=== PATIENT | female | born 1960 | race Caucasian/White ===

== ENCOUNTER 2020-01-13 15:59 | Emergency (ER) | payer OTHER, SELFPAY ==
--- NOTE | ~2020-01-13 | XR_ITS ---
EXAMINATION: XR chest 2V DATE: 01/13/2020 17:03 INDICATION: Chest pain. TECHNIQUE: Frontal and lateral views of the chest were obtained. COMPARISON: None. FINDINGS: There is mild scarring at the lung apices. No pleural effusion or pneumothorax. The heart s ize is normal. There is a moderate-sized hiatal hernia. There are surgical clips in the upper abdomen . IMPRESSION: 1. Moderate-sized hiatal hernia. Reviewed, dictated and finalized at location A.
[2020-01-13 16:33] VITALS: BP 151/98; PULSE 87; RESP 16; TEMP 36.8; O2SAT 97
--- NOTE | 2020-01-13 16:33 | ECG_ITS ---
Measurements Intervals [place] Rate: 85 P: 37 MN: 150 QRS: 29 QRSD: 86 T: 38 QT: 354 QTc: 422 Interpretive Statements SINUS RHYTHM NORMAL ECG Electronically Signed On 01-13-2020 16:47:49 CDT by Darren Kemp D.O.
[2020-01-13 16:47] LABS: Basophils Absolute Auto 0.1 K/mm3 (0.0-0.1); Eosinophils Percent Auto 11.9 % (0-4.4); Hematocrit 48.3 % (37.0-47.0); Hemoglobin 15.7 g/dL (12.0-15.0); Immature Granulocyte Absolute 0.03 K/mm3 (0.00-0.031); Immature Granulocyte Percent A 0.4 % (0-0.5); Lymphocytes Absolute Auto 1.72 K/mm3 (0.9-3.2); Lymphocytes Percent Auto 21.6 % (18.3-44.2); Mean Corpuscular HGB Conc 32.5 g/dl (32-36); Mean Corpuscular Hemoglobin 31.3 pg (26-34); Mean Corpuscular Volume 96.4 fl (80-100); Mean Platelet Volume 9.5 fl (7.4-10.4); Monocytes Absolute Auto 0.6 K/mm3 (0.1-0.6); Monocytes Percent Auto 8.1 % (2.6-8.5); Neutrophils Absolute Auto 4.5 K/mm3 (1.3-6.7); Platelet Count Result 216 k/mm3 (150-375); Red Blood Count 5.01 M/mm3 (4.2-5.4); Red Cell Distribution Width 13.1 % (11.5-14.5)
[2020-01-13 16:58] LABS: Anion Gap 7 mmol/L (8-16); Blood Urea Nitrogen 15 mg/dL (7-17); Carbon Dioxide 27 mmol/L (22-30); Chloride 105 mmol/L (98-107); Estimated CRCL calculation 118 ml/min; Estimated Glomerular Filt Rate > 60; Glucose 114 mg/dL (65-105); Potassium 4.3 mmol/L (3.4-5.0); Sodium 139 mmol/L (137-145)
[2020-01-13 17:04] LABS: Prothrombin Time 12.6 Seconds (11.1-14.7)
[2020-01-13 17:05] LABS: Partial Thromboplastin Time 24.7 SECONDS (22.3-36.8)
[2020-01-13 17:10] LABS: Troponin I < 0.012 ng/mL (0.000-0.034)
[2020-01-13 18:48] VITALS: PULSE 89
[2020-01-13 18:49] VITALS: BP 142/90; PULSE 89; RESP 17; O2SAT 98
--- NOTE | 2020-01-13 18:59 | ED.CHESTPAIN ---
HPI - Chest Pain General Chief Complaint: Chest Pain Stated Complaint: High Blood Pressure Time Seen by Provider: 01/13/20 18:38 Source: patient Mode of arrival: ambulatory Limitations: no limitations History of Present Illness HPI narrative: Patient is a 59-year-old female who presents from urgent care with complaints of chest tightness. Patient reports elevated blood pressure earlier this a.m. and chest tightness started after. She denies shortness of breath. She denies exposure to Covid. Patient reports she was Covid +2 months ago. Patient denies headache, nausea, vomiting, diarrhea or other complaints. Patient reports only cardiac history that she has is hypertension. She reports pain is tightness and 3/10. MD complaint: chest heaviness Related Data Allergies Allergy/AdvReac Type Severity Reaction Status Date / Time No Known Allergies Allergy Mild Verified 01/13/20 18:49 Review of Systems Review of Systems: Narrative: CONSTITUTIONAL: Denies fever, chills, or sweats. EYES: Denies visual changes, redness, or discharge. ENT: Denies rhinorrhea, congestion, sore throat, or otalgia. CARDIOVASCULAR: Reports chest tightness, denies palpitations or edema. RESPIRATORY: Denies cough or dyspnea. GASTROINTESTINAL: Denies abdominal pain, nausea, vomiting, or diarrhea. GENITOURINARY: Denies dysuria or hematuria. SKIN: Denies rash or itching. MUSCULOSKELETAL: Denies back pain, joint pain, or myalgia. NEUROLOGIC: Denies headache, numbness, dizziness, or weakness. PSYCHIATRIC: Denies anxiety or depression. [facility] Past Medical History Medical History HTN (hypertension) PVCs (premature ventricular contractions) Surgical History Surgical History H/O shoulder surgery Family History Family History Other Hypertension Social History Social History (Updated 01/13/20 @ 19:05 by FLORA Delgado) Smoking status: Never smoker Alcohol intake: current Alcohol use details: occasional Substance use: never Living arrangements: with family Gender identity (if verbalized by the patient): Female Exam Narrative: Exam Narrative: GENERAL: Well-appearing, well-nourished, and in no acute distress. HEAD: Normocephalic, atraumatic. EYES: No redness or drainage. ENT: Mucous membranes pink and moist. CHEST: No respiratory distress. Clear to auscultation. HEART: Regular rate and rhythm. No murmur appreciated. Normal peripheral pulses. GI: Soft, nontender without rebound, or guarding. No distention. Bowel sounds normal in all quadrants. MUSCULOSKELETAL: No bony tenderness. EXTREMITIES: Normal range of motion. No edema. SKIN: Warm, dry, no rash. NEURO: No focal deficits. Alert and oriented x3. Gait steady. PSYCH: Normal affect. No signs of depression or anxiety. Course Vital Signs Vital signs: Vital Signs Temperature 36.8 C 01/13/20 16:33 Pulse Rate 87 01/13/20 16:33 Respiratory Rate 16 01/13/20 16:33 Blood Pressure 151/98 H 01/13/20 16:33 Pulse Oximetry 97 01/13/20 16:33 Temperature 36.8 C 01/13/20 16:33 Pulse Rate 89 01/13/20 18:49 Respiratory Rate 17 01/13/20 18:49 Blood Pressure 142/90 H 01/13/20 18:49 Pulse Oximetry 98 01/13/20 18:49 MDM - Chest Pain MDM Narrative Medical decision making narrative: Patient has a heart score of 2. Vital signs are stable. Patient denies chest pain at this time. Patient is stable for discharge to home with outpatient follow-up. Patient is aware of the need to follow-up with PCP in 3 to 5 days. Patient aware that if she experiences increased chest pain or shortness of breath that she needs to immediately return for further evaluation. Differential Diagnosis Differential diagnosis: Likely atypical chest pain, costochondritis, chest pain and other (chest tightness) Lab
[2020-01-13 20:09] LABS: Troponin I < 0.012 ng/mL (0.000-0.034)
== END 2020-01-13 21:00 | disposition home or self-care (01) ==
PROVIDERS: Emergency Medicine; Emergency Provider Nurse Practitioner
DX: R07.89 Other chest pain (principal); I10 Essential (primary) hypertension
CPT/HCPCS: 36415; 71046; 80048; 84484; 85025; 85610; 85730; 93005; 99284

== ENCOUNTER 2024-01-18 23:59 | Emergency (ER) | payer OTHER, SELFPAY ==
--- NOTE | ~2024-01-18 | CT_ITS ---
CT of the Abdomen and Pelvis: Indication: Abdominal pain Technique: 2.5 mm axial scans were obtained through the abdomen and pelvis following intravenous adm inistration of 100 cc of Omnipaque 350. Dose reduction technique was used on this scan by utilizing a utomated exposure control and iterative reconstruction technique. The dose-length product (DLP) was 1 597.63 mGy-cm. Findings: Scans through the lung bases demonstrate moderate hiatal hernia. There is diffuse hepatic steatosis. The spleen, pancreas, gallbladder, adrenals and left kidney are w ithin normal limits. There is moderate right hydroureteronephrosis with probable 2 mm right UVJ stone present. No evidence of aortic aneurysm. No lymphadenopathy. No bowel obstruction or bowel wall thickening. There is no evidence to suggest acute appendicitis. Images through the pelvis are degraded by streak artifact from right hip arthroplasty. Urinary bladde r unremarkable. No pelvic mass evident. No ascites. Impression: Moderate right hydroureteronephrosis with suspected 2 mm right UVJ stone. Evaluation of the pelvis is suboptimal due to streak artifact from right hip arthroplasty. Diffuse hepatic steatosis. Moderate hiatal hernia. Reviewed, dictated and finalized at [facility]. Impression: Moderate right hydroureteronephrosis with suspected 2 mm right UVJ stone. Evalu ation of the pelvis is suboptimal due to streak artifact from right hip arthrop lasty. Diffuse hepatic steatosis. Moderate hiatal hernia.
[2024-01-19 00:26] LABS: Basophils Absolute Auto 0.1 K/mm3 (0.0-0.1); Basophils Percent Auto 0.7 % (0.2-1.2); Eosinophils Absolute Auto 0.6 K/mm3 (0-0.3); Hematocrit 46.5 % (37.0-47.0); Hemoglobin 15.3 g/dL (12.0-15.0); Immature Granulocyte Absolute 0.03 K/mm3 (0.00-0.031); Immature Granulocyte Percent A 0.3 % (0-0.5); Lymphocytes Absolute Auto 2.24 K/mm3 (0.9-3.2); Lymphocytes Percent Auto 24.6 % (18.3-44.2); Mean Corpuscular HGB Conc 32.9 g/dl (32-36); Mean Corpuscular Hemoglobin 31.8 pg (26-34); Mean Corpuscular Volume 96.7 fl (80-100); Monocytes Absolute Auto 0.8 K/mm3 (0.1-0.6); Monocytes Percent Auto 8.5 % (2.6-8.5); Neutrophils Absolute Auto 5.4 K/mm3 (1.3-6.7); Neutrophils Percent Auto 58.9 % (45.5-73.1); Platelet Count Result 215 k/mm3 (150-375); Red Blood Count 4.81 M/mm3 (4.2-5.4); Red Cell Distribution Width 13.2 % (11.5-14.5); White Blood Count 9.1 K/mm3 (4.5-10.0)
--- NOTE | 2024-01-19 00:34 | ED.ABDPAIN ---
HPI - Abdominal Pain General Chief Complaint: Abdominal Pain Stated Complaint: right side pain and vomiting Time Seen by Provider: 01/19/24 00:31 Source: patient Mode of arrival: ambulatory Limitations: no limitations History of Present Illness HPI narrative: Patient presents with R sided abdominal pain that starts in her back and radiates in front. No groin involvement though she indicates right hemipelvis. It started acutely today and is associated with nausea and 5 episodes of NBNB emesis. Pain described as sharp, 7/10 in severity and constant. She was concerned for a UTI since she has been having urinary frequency but no dysuria or hematuria. LBM 2 hours ago. No diarrhea, constipation, blood stools. MYA was a turkey sandwich 2hrs [employer]. No appetite currently. No fevers but having chills. Previously followed with GI for esophageal strictures requiring it to be stretched but hasn't seen them in awhile. History of Yogi fundiplication and hernia surgery. Last colonoscopy was 8 year ago and normal. No history of kidney stones or gall bladder issues. Related Data Allergies Allergy/AdvReac Type Severity Reaction Status Date / Time No Known Allergies Allergy Mild Verified 01/13/20 18:49 [facility] Past Medical History Medical History HTN (hypertension) PVCs (premature ventricular contractions) Surgical History Surgical History H/O shoulder surgery History of Norbert fundoplication Hx of colonoscopy ~2015 Status post dilatation of esophageal stricture Family History Family History Other Hypertension Social History Social History (Updated 01/13/20 @ 19:05 by Brenda Henry, FLORA) Smoking status: Never smoker Alcohol intake: current Alcohol use details: occasional Substance use: never Living arrangements: with family Gender identity (if verbalized by the patient): Female Exam Narrative: GENERAL: Well-appearing, well-nourished, and in no acute distress. HEAD: Normocephalic, atraumatic. EYES: Non injected, non icteric ENT: Nares clear, no rhinorrhea or epistaxis. NECK: Supple. CHEST: Speaking in full sentences. No respiratory distress. HEART: Regular rate and rhythm. . ABDOMEN: Obese. Soft, nondistended. Non tender to palpation w/o rigidity or guarding. Not peritoneal. Funes sign negative. EXTREMITIES: Normal range of motion. No lower extremity edema. BACK/: No CVA tenderness bilaterally. SKIN: Warm, dry, no rash. NEURO: No focal deficits. Alert and oriented x3. PSYCH: Normal mood and affect. Course Vital Signs Vital signs: Vital Signs Temperature 97.5 F L 01/19/24 01:00 Pulse Rate 91 01/19/24 01:00 Respiratory Rate 16 01/19/24 01:00 Blood Pressure 191/117 H 01/19/24 01:00 Pulse Oximetry 98 01/19/24 01:00 Oxygen Delivery Room Air 01/19/24 01:00 Temperature 97.5 F L 01/19/24 01:00 Pulse Rate 78 01/19/24 03:47 Respiratory Rate 14 01/19/24 03:47 Blood Pressure 173/99 H 01/19/24 03:47 Pulse Oximetry 98 01/19/24 03:47 Oxygen Delivery Room Air 01/19/24 01:00 MDM - Abdominal Pain MDM Narrative Medical decision making narrative: Patient presents with right sided abdominal pain that starts in her back and radiates into the front. In the ED she is afebrile with VS that show hypertension. Patient given analgesic medication and antiemetic. Urinalysis shows no bacteria. There are trace leukocyte esterase and some WBCs, although this does not appear to be a significant concomitant infection in addition to the kidney stone seen on imaging. For this reason, I believe it is reasonable to, out of an abundance of precaution, treat as a urinary tract infection/pyelonephritis but believe this can be done in the outpatient setting given she is otherwise hemodynamically stable. Patient is reassessed at 3:00 a.m.. She notes that when she came back from CT scan she did dry heave but otherwise she is feeling much better regards to her nausea and only has a dull aching pain. We discussed the findings and patient agrees with the plan. She was given very strict emergency department return precautions to come back as that may signify a concomitant infection (infected stone). Of note, patient is not hypotensive but rather remains hypertensive. She is nontoxic appearing. Discharged in stable condition and observed easily walking out of the department with steady normal gait. Differential Diagnosis Differential diagnosis: Likely abdominal pain, calculus of kidney, constipation, gastroenteritis, pancreatitis and other ( Urinary tract infection including pyelonephritis or a kidney stones with superimposed infection; biliary etiology) Lab Data Attestation: I reviewed the patient's lab results. Lab results narrative: Hyperglycemia without anion gap or acidosis. Patient has an isolated azotemia with normal renal function. 01/19/24 00:20 01/19/24 00:20 Labs: Lab Results 01/19/24 01/19/24 Range/Units 00:20 01:30 WBC 9.1 (4.5-10.0) K/mm3 RBC 4.81 (4.2-5.4) M/mm3 Hgb 15.3 H (12.0-15.0) g/dL Hct 46.5 (37.0-47.0) % MCV 96.7 (80-100) fl MCH 31.8 (26-34) pg MCHC 32.9 (32-36) g/dl RDW 13.2 (11.5-14.5) % Plt Count 215 (150-375) k/mm3 MPV 10.0 (7.4-10.4) fl Immature Gran % (Auto) 0.3 (0-0.5) % Neut % (Auto) 58.9 (45.5-73.1) % Lymph % (Auto) 24.6 (18.3-44.2) % [place] % (Auto) 8.5 (2.6-8.5) % Eos % (Auto) 7.0 H (0-4.4) % Baso % (Auto) 0.7 (0.2-1.2) % Lymph # (Auto) 2.24 (0.9-3.2) K/mm3 [place] # (Auto) 0.8 H (0.1-0.6) K/mm3 Eos # (Auto) 0.6 H (0-0.3) K/mm3 Baso # (Auto) 0.1 (0.0-0.1) K/mm3 Abs Immat Gran (auto) 0.03 (0.00-0.031) K/mm3 Absolute Neuts (auto) 5.4 (1.3-6.7) K/mm3 Absolute Nucleated RBC 0.000 (0.0-0.012) K/mm3 Nucleated RBC % 0.0 (0.0-0.2) % Sodium 140 (137-145) mmol/L Potassium 3.9 (3.4-5.0) mmol/L Chloride 104 (98-107) mmol/L Carbon Dioxide 24 (22-30) mmol/L Anion Gap 12 (4-12) mmol/L BUN 28 H D (7-17) mg/dL Creatinine 0.80 (0.7-1.0) mg/dL Estim Creat Clear Calc 86 ml/min Estimated GFR > 60 (59 - ) Glucose 166 H (65-110) mg/dL Calcium 8.4 (8.4-10.2) mg/dL Total Bilirubin 0.5 (0.2-1.3) mg/dL AST 21 (14-36) U/L ALT 22 (6-35) U/L Alkaline Phosphatase 82 (38-126) U/L Total Protein 7.0 (6.3-8.2) g/dL Albumin 4.0 (3.5-5.1) g/dL Lipase 86 (23-300) U/L Urine Color Dark yellow (Yellow) Urine Appearance Turbid H (Clear) Urine pH 5.0 (5.0-9.0) Ur Specific [place] 1.033 (1.001-1.035) Urine Protein 1+ H (Negative) mg/dL Urine Glucose (UA) Negative (Negative) mg/dL Urine Ketones Trace H (Negative) mg/dL Ur Blood (Man) 3+ H (Negative) Urine Nitrate Negative (Negative) Urine Bilirubin Negative (Negative) Urine Urobilinogen 1.0 (<2.0) mg/dL Leukocyte Esterase Rfl Trace H (Negative) DAMI/UL Urine RBC >100 H (0-2) /hpf Urine WBC 6-10 H (0-3) /hpf Ur Squamous Epith Cells Few (Few) /hpf Uric Acid Crystals Present H (None) /hpf Urine Bacteria None seen /hpf Urine Casts 0-2 Influenza A (RT-PCR) Negative (Negative) Influenza B (RT-PCR) Negative (Negative) RSV (RT-PCR) Negative (Negative) SARS-CoV-2 RNA (RT-PCR) Negative (Negative) Imaging Data Radiologist's impression: ITS Impressions Abdomen/Pelvis CT 01/19/24 06:27 Impression: Moderate right hydroureteronephrosis with suspected 2 mm right UVJ stone. Evaluation of the pelvis is suboptimal due to streak artifact from right hip arthroplasty. Diffuse hepatic steatosis. Moderate hiatal hernia. CT abd/pelvis with contrast: no acute finding. No appendicitis. Right UVJ 0.2 cm stone. Right moderate hydroureteronephrosis. Correlate for UTI/pyelonephritis Discharge Plan Discharge Clinical Impression: Nausea & vomiting, Hyperglycemia, Azotemia, Calculus of ureterovesical junction (UVJ), Hydroureteronephrosis, Abnormal urinalysis, Hypertension Patient Disposition: Home, Self-Care Condition: Stable Instructions: Antibiotic Form, Kidney Stones (ED), Kidney Infection (ED), Acute Nausea and Vomiting (ED), How to Strain Your Urine (ED), Hypertension (ED), Flank Pain (ED) Additional Instructions: As we discussed, you have evidence of a 0.2 cm stone at your right UVJ which is the intersection between your ureter and bladder. These often passed spontaneously no use combination of medications as described to help assist the process (ibuprofen for pain, ondansetron oral disintegrating tablets for nausea, and tamsulosin to flush the urine). You also had abnormalities of your urinalysis and, out of an abundance of precaution, we are treating this as a urinary tract infection/kidney infection. you received the 1st dose of your antibiotic in the emergency department with the rest of the course prescribed. As we talked about, he will be notified if based on the urine culture this needs to be changed. If desired, you can follow-up with the urologist listed below and take the stone you pass for analysis. it is important she return to the emergency department with any new or worsening symptoms such as fever greater than 100.4? F, intractable pain, intractable nausea or vomiting, concern for dehydration, etc. you are also noted to have elevated blood pressure. follow-up with primary care physician to determine if this is a longstanding issue that requires medication. if you do not have a primary care physician the name of a doctor is listed below. Prescriptions: New cephalexin 500 mg capsule 500 mg PO Q8H 10 Days Qty: 30 0RF tamsulosin 0.4 mg capsule 0.4 mg PO DAILY Qty: 7 0RF ondansetron 4 mg tablet,disintegrating 4 mg PO Q8H PRN (Reason: nausea and vomiting) Qty: 7 0RF ibuprofen 600 mg tablet 600 mg PO TID PRN (Reason: pain) Qty: 20 0RF Follow-up/Referrals: Chano Briones MD [Physician] - ( Family practice) PHYSICIAN NOT ON STAFF,NONSTAFF [Primary Care Provider] - Mati Lofton MD [Physician] - (urology) Stand Alone Forms: Work/School Release IP Time of Disposition: 03:17
[2024-01-19 00:38] LABS: Alanine Aminotransferase 22 U/L (6-35); Alkaline Phosphatase 82 U/L (38-126); Anion Gap 12 mmol/L (4-12); Aspartate Amino Transferase 21 U/L (14-36); Bilirubin,Total 0.5 mg/dL (0.2-1.3); Blood Urea Nitrogen 28 mg/dL (7-17); Calcium 8.4 mg/dL (8.4-10.2); Carbon Dioxide 24 mmol/L (22-30); Chloride 104 mmol/L (98-107); Estimated CRCL calculation 86 ml/min; Estimated Glomerular Filt Rate > 60; Glucose 166 mg/dL (65-110); Lipase 86 U/L (23-300); Potassium 3.9 mmol/L (3.4-5.0); Sodium 140 mmol/L (137-145)
[2024-01-19 01:00] VITALS: BP 191/117; PULSE 91; RESP 16; TEMP 36.4; O2SAT 98
[2024-01-19 01:03] LABS: Influenza A QL RT-PCR Negative (Negative); Influenza B QL RT-PCR Negative (Negative); RSV RNA, RT-PCR Negative (Negative); SARS-CoV-2 RNA PCR Negative (Negative)
[2024-01-19] MEDS: MORPHINE SULFATE (*CRX) 4 MG/ML INJ IV PUSH (01:30)
[2024-01-19] MEDS: ONDANSETRON INJ 4 MG/2 ML VIAL IV PUSH (01:30)
[2024-01-19 02:04] LABS: Add Urine Microscopic? YES; Appearance Urine Turbid (Clear); Bacteria Urine None Seen /hpf; Bilirubin Urine Negative (Negative); Blood Urine 3+ (Negative); Color Urine Dark Yellow (Yellow); Glucose Urine UA Negative (Negative); Ketones Urine Trace mg/dL (Negative); Leukocyte Esterase Ur Trace LEU/UL (Negative); Nitrate Urine Negative (Negative); Non Pathogenic Casts 0-2; Protein Urine 1+ mg/dL (Negative); RBC Urine >100 /hpf (0-2); Specific Grav Ur 1.033 (1.001-1.035); Squamous Epithelial Cell Urine Few /hpf (Few); Uric Acid Crystals Urine Present /hpf
[2024-01-19 02:56] VITALS: BP 199/113; PULSE 88; RESP 14; O2SAT 97
[2024-01-19] MEDS: KETOROLAC 15 MG/ML VIAL (*BKC) IV PUSH (03:21)
[2024-01-19] MEDS: TAMSULOSIN HCL 0.4 MG CAPSULE PO (03:21)
[2024-01-19 03:47] VITALS: BP 173/99; PULSE 78; RESP 14; O2SAT 98
== END 2024-01-19 03:48 | disposition home or self-care (01) ==
PROVIDERS: Emergency Provider Student in an Organized Health Care Education/Training Program
DX: R11.2 Nausea with vomiting, unspecified (principal); R73.9 Hyperglycemia, unspecified; N13.2 Hydronephrosis with renal and ureteral calculous obstruction; R82.90 Unspecified abnormal findings in urine; I10 Essential (primary) hypertension; Z20.822 Contact with and (suspected) exposure to COVID-19
CPT/HCPCS: 36415; 74177; 80053; 81001; 83690; 85025; 87086; 87637; 96365; 96375; 99284; A9270; J0696; J1885; J2270; J2405; Q9967

== ENCOUNTER 2024-02-29 09:42 | Observation (INO) | payer OTHER, SELFPAY ==
--- NOTE | ~2024-02-29 | CT_ITS ---
EXAMINATION: CT abdomen pelvis w con DATE: 02/29/2024 12:40 INDICATION: Abdominal pain. Gastrointestinal hemorrhage. TECHNIQUE: Computed tomography (CT) of the abdomen and pelvis was performed with 100 mL Omnipaque 350 intravenous contrast. Automated exposure control and iterative reconstruction technique were employe d. The dose-length product was 1509.50 mGy-cm. COMPARISON: CT abdomen and pelvis 01/19/2024 FINDINGS: The visualized portions of the lung bases are clear without pneumonia or pleural effusion. The heart size is normal. No pericardial effusion. There is a moderate-sized sliding hiatal hernia. T here are surgical clips around the proximal stomach. There is diffuse hepatic steatosis. The gallblad jose, spleen, pancreas, adrenal glands, and kidneys are normal. There is diverticulosis of the colon w ithout evidence of diverticulitis. There are no dilated loops of bowel. The appendix is normal. There are no pathologically enlarged lymph nodes. There is no free intraperitoneal fluid. There is a total right hip arthroplasty. There is severe lower lumbar spondylosis and mild thoracic spondylosis. IMPRESSION: 1. Moderate-sized sliding hiatal hernia. 2. Diffuse hepatic steatosis. Reviewed, dictated and finalized at location A. [employer]
[2024-02-29 10:01] VITALS: BP 94/67; PULSE 133; RESP 22; O2SAT 100
--- NOTE | 2024-02-29 10:07 | ECG_ITS ---
Test Date: 2024-02-29 10:34:30 Measurements Intervals [place] Rate: 131 P: 28 CO: 140 QRS: 11 QRSD: 81 T: 40 QT: 297 QTc: 439 Interpretive Statements SINUS TACHYCARDIA ABNORMAL RHYTHM ECG No previous ECG available for comparison Electronically Signed On 02-29-2024 15:04:26 [employer] by Chao Burkett M.D.
--- NOTE | 2024-02-29 10:49 | ED_ITS ---
HPI - General Adult General Chief complaint: GI Bleed Stated complaint: weakness, syncope last noc Time Seen by Provider: 02/29/24 10:49 Source: patient History of Present Illness HPI narrative: 63 years old white female came to the ED by ambulance complaining of dizziness, abdominal pain, diaphoretic for the last 24 hours. She denies any fever or chills or nausea or vomiting, history of GI bleed, her stool is black. Related Data Allergies Allergy/AdvReac Type Severity Reaction Status Date / Time No Known Allergies Allergy Mild Verified 01/13/20 18:49 Review of Systems Review of Systems: All systems reviewed & are unremarkable except as noted in HPI and below PMFSH Past Medical History Medical History HTN (hypertension) PVCs (premature ventricular contractions) Surgical History Surgical History H/O shoulder surgery History of Norbert fundoplication Hx of colonoscopy ~2015 Status post dilatation of esophageal stricture Family History Family History Other Hypertension Social History Social History Smoking status: Never smoker Alcohol intake: current Alcohol use details: occasional Substance use: never Living arrangements: with family Gender identity (if verbalized by the patient): Female Exam Narrative: General appearance: Well-developed, well-nourished Skin: Pale, diaphoretic Head: Normocephalic, nontraumatic Eyes: Clear conjunctiva ENT: Oropharynx normal, ears normal, nose normal Neck: Supple, nontender Chest and respiratory: Airway patent, no respiratory distress, no accessory muscle use Heart: Regular rate/rhythm Abdomen: Soft, mild diffuse abdominal pain, no organomegaly, quiet bowel sounds Neurologic: Alert and oriented ?3, Course Vital Signs Vital signs: Vital Signs Pulse Rate 133 H 02/29/24 10:01 Respiratory Rate 22 H 02/29/24 10:01 Blood Pressure 94/67 L 02/29/24 10:01 Pulse Oximetry 100 02/29/24 10:01 Oxygen Delivery Room Air 02/29/24 10:01 Temperature 36.6 C 02/29/24 13:03 Pulse Rate 121 H 02/29/24 13:03 Respiratory Rate 16 02/29/24 13:03 Blood Pressure 100/62 02/29/24 13:03 Pulse Oximetry 99 02/29/24 13:03 Oxygen Delivery Room Air 02/29/24 10:01 Medical Decision Making [facility] Narrative Medical decision making narrative: PATIENT CAME TO THE ED WITH MASSIVE BLACK DIARRHEA STARTED LAST NIGHT, VITAL SIGNS SHOWING BLOOD PRESSURE 94/67, HEART RATE 133 PHYSICAL EXAMINATION SHOWING DIAPHORETIC PATIENT, LOOKS ILL, CONSTANT OFFENSIVE ODOR DIARRHEA, GUAIAC POSITIVE DIFFERENTIAL DIAGNOSIS GI BLEED, C DIFF, DIVERTICULITIS, ELECTROLYTE IMBALANCE, DEHYDRATION, ANEMIA BLOOD WORKUP TODAY INCLUDES CBC, CMP, LIPASE, LACTIC ACID SHOWED WBC 16.8 HEMOGLOBIN 10.6 POTASSIUM 5.2, CHLORIDE 111, BUN [address] ABDOMEN AND PELVIS WITH IV CONTRAST SHOWED HEPATIC STEATOSIS, HIATAL HERNIA ADMIT TO HOSPITALIST, CONSULT COMPUTING CONSULTANT Differential Diagnosis Differential Diagnosis: ABOVE Vital Signs Vital Signs: Vital Signs Pulse Rate 133 H 02/29/24 10:01 Respiratory Rate 22 H 02/29/24 10:01 Blood Pressure 94/67 L 02/29/24 10:01 Pulse Oximetry 100 02/29/24 10:01 Oxygen Delivery Room Air 02/29/24 10:01 Temperature 36.6 C 02/29/24 13:03 Pulse Rate 121 H 02/29/24 13:03 Respiratory Rate 16 02/29/24 13:03 Blood Pressure 100/62 02/29/24 13:03 Pulse Oximetry 99 02/29/24 13:03 Oxygen Delivery Room Air 02/29/24 10:01 Lab Data 02/29/24 12:58 02/29/24 10:39 Labs: Lab Results 02/29/24 02/29/24 02/29/24 Range/Units 10:39 11:22 11:23 WBC 16.8 H (4.5-10.0) K/mm3 RBC 3.14 L (4.2-5.4) M/mm3 Hgb 10.1 L D (12.0-15.0) g/dL Hct 31.2 L (37.0-47.0) % MCV 99.4 (80-100) fl MCH 32.2 (26-34) pg MCHC 32.4 (32-36) g/dl RDW 13.0 (11.5-14.5) % Plt Count 234 (150-375) k/mm3 MPV 10.5 H (7.4-10.4) fl Immature Gran % (Auto) 0.8 H (0-0.5) % Neut % (Auto) 87.1 H (45.5-73.1) % Lymph % (Auto) 7.2 L (18.3-44.2) % [place] % (Auto) 4.2 (2.6-8.5) % Eos % (Auto) 0.3 (0-4.4) % Baso % (Auto) 0.4 (0.2-1.2) % Lymph # (Auto) 1.22 (0.9-3.2) K/mm3 [place] # (Auto) 0.7 H (0.1-0.6) K/mm3 Eos # (Auto) 0.1 (0-0.3) K/mm3 Baso # (Auto) 0.1 (0.0-0.1) K/mm3 Abs Immat Gran (auto) 0.14 H (0.00-0.031) K/mm3 Absolute Neuts (auto) 14.7 H (1.3-6.7) K/mm3 Absolute Nucleated RBC 0.000 (0.0-0.012) K/mm3 Nucleated RBC % 0.0 (0.0-0.2) % PT 13.9 (11.1-14.7) Seconds INR 1.0 APTT 23.0 (22.3-36.8) Seconds Sodium 138 (137-145) mmol/L Potassium 5.2 H (3.4-5.0) mmol/L Chloride 111 H (98-107) mmol/L Carbon Dioxide 22 (22-30) mmol/L Anion Gap 5 (4-12) mmol/L BUN 58 H D (7-17) mg/dL Creatinine 0.60 L (0.7-1.0) mg/dL Estim Creat Clear Calc 114 ml/min Estimated GFR > 60 (59 - ) Glucose 241 H (65-110) mg/dL Calcium 8.2 L (8.4-10.2) mg/dL Total Bilirubin 0.6 (0.2-1.3) mg/dL AST 17 (14-36) U/L ALT 17 (6-35) U/L Alkaline Phosphatase 50 (38-126) U/L Total Protein 6.0 L (6.3-8.2) g/dL Albumin 3.3 L (3.5-5.1) g/dL Blood Type O Negative Antibody Screen Negative 02/29/24 Range/Units 12:58 WBC (4.5-10.0) K/mm3 RBC (4.2-5.4) M/mm3 Hgb 10.6 L (12.0-15.0) g/dL Hct 32.5 L (37.0-47.0) % MCV (80-100) fl MCH (26-34) pg MCHC (32-36) g/dl RDW (11.5-14.5) % Plt Count (150-375) k/mm3 MPV (7.4-10.4) fl Immature Gran % (Auto) (0-0.5) % Neut % (Auto) (45.5-73.1) % Lymph % (Auto) (18.3-44.2) % [place] % (Auto) (2.6-8.5) % Eos % (Auto) (0-4.4) % Baso % (Auto) (0.2-1.2) % Lymph # (Auto) (0.9-3.2) K/mm3 [place] # (Auto) (0.1-0.6) K/mm3 Eos # (Auto) (0-0.3) K/mm3 Baso # (Auto) (0.0-0.1) K/mm3 Abs Immat Gran (auto) (0.00-0.031) K/mm3 Absolute Neuts (auto) (1.3-6.7) K/mm3 Absolute Nucleated RBC (0.0-0.012) K/mm3 Nucleated RBC % (0.0-0.2) % PT (11.1-14.7) Seconds INR APTT (22.3-36.8) Seconds Sodium (137-145) mmol/L Potassium (3.4-5.0) mmol/L Chloride (98-107) mmol/L Carbon Dioxide (22-30) mmol/L Anion Gap (4-12) mmol/L BUN (7-17) mg/dL Creatinine (0.7-1.0) mg/dL Estim Creat Clear Calc ml/min Estimated GFR (59 - ) Glucose (65-110) mg/dL Calcium (8.4-10.2) mg/dL Total Bilirubin (0.2-1.3) mg/dL AST (14-36) U/L ALT (6-35) U/L Alkaline Phosphatase (38-126) U/L Total Protein (6.3-8.2) g/dL Albumin (3.5-5.1) g/dL Blood Type Antibody Screen Imaging Data Radiologist's impression: Impressions Abdomen/Pelvis CT 02/29/24 12:45 IMPRESSION: 1. Moderate-sized sliding hiatal hernia. 2. Diffuse hepatic steatosis. Critical Care Time Critical Care Time Critical Care Time: Yes Total Critical Care Time: 30 Discharge Plan Discharge Clinical Impression: Acute GI bleeding Patient Disposition: Still a Patient Condition: Guarded Prognosis Prescriptions: No Action cephalexin 500 mg capsule 500 mg PO Q8H 10 Days Qty: 30 0RF tamsulosin 0.4 mg capsule 0.4 mg PO DAILY Qty: 7 0RF ondansetron 4 mg tablet,disintegrating 4 mg PO Q8H PRN (Reason: nausea and vomiting) Qty: 7 0RF ibuprofen 600 mg tablet 600 mg PO TID PRN (Reason: pain) Qty: 20 0RF Follow-up/Referrals: PHYSICIAN NOT ON STAFF,NONSTAFF [Primary Care Provider] -
[2024-02-29 11:00] VITALS: BP 101/70; PULSE 125; RESP 14; TEMP 36.7; O2SAT 99
[2024-02-29 11:00] LABS: Alanine Aminotransferase 17 U/L (6-35); Albumin Level 3.3 g/dL (3.5-5.1); Alkaline Phosphatase 50 U/L (38-126); Anion Gap 5 mmol/L (4-12); Aspartate Amino Transferase 17 U/L (14-36); Bilirubin,Total 0.6 mg/dL (0.2-1.3); Blood Urea Nitrogen 58 mg/dL (7-17); Calcium 8.2 mg/dL (8.4-10.2); Carbon Dioxide 22 mmol/L (22-30); Chloride 111 mmol/L (98-107); Estimated CRCL calculation 114 ml/min; Estimated Glomerular Filt Rate > 60; Glucose 241 mg/dL (65-110); Potassium 5.2 mmol/L (3.4-5.0); Sodium 138 mmol/L (137-145)
[2024-02-29 11:38] LABS: Basophils Absolute Auto 0.1 K/mm3 (0.0-0.1); Basophils Percent Auto 0.4 % (0.2-1.2); Eosinophils Absolute Auto 0.1 K/mm3 (0-0.3); Eosinophils Percent Auto 0.3 % (0-4.4); Hematocrit 31.2 % (37.0-47.0); Hemoglobin 10.1 g/dL (12.0-15.0); Immature Granulocyte Absolute 0.14 K/mm3 (0.00-0.031); Immature Granulocyte Percent A 0.8 % (0-0.5); Lymphocytes Absolute Auto 1.22 K/mm3 (0.9-3.2); Lymphocytes Percent Auto 7.2 % (18.3-44.2); Mean Corpuscular HGB Conc 32.4 g/dl (32-36); Mean Corpuscular Hemoglobin 32.2 pg (26-34); Mean Corpuscular Volume 99.4 fl (80-100); Mean Platelet Volume 10.5 fl (7.4-10.4); Monocytes Absolute Auto 0.7 K/mm3 (0.1-0.6); Monocytes Percent Auto 4.2 % (2.6-8.5); Neutrophils Absolute Auto 14.7 K/mm3 (1.3-6.7); Neutrophils Percent Auto 87.1 % (45.5-73.1); Platelet Count Result 234 k/mm3 (150-375); Red Blood Count 3.14 M/mm3 (4.2-5.4); White Blood Count 16.8 K/mm3 (4.5-10.0)
[2024-02-29 11:50] LABS: Prothrombin Time 13.9 Seconds (11.1-14.7)
[2024-02-29 12:00] VITALS: BP 115/70; PULSE 120; RESP 14; O2SAT 99
[2024-02-29] MEDS: SODIUM CHLORIDE 0.9% IV 1,000 ML 999 ML IV CONT ×2 (12:07→12:18)
[2024-02-29] MEDS: PANTOPRAZOLE SODIUM IV 40 MG VIAL IV PUSH (12:19)
[2024-02-29] MEDS: ONDANSETRON INJ 4 MG/2 ML VIAL IV PUSH (12:20)
[2024-02-29] MEDS: MORPHINE SULFATE (*CRX) 4 MG/ML INJ IV PUSH ×3 (12:21→19:00)
--- NOTE | 2024-02-29 12:54 | P.HP_ITS ---
H&P: HPI History of Present Illness Date/Time: 02/29/24 12:54 Chief Complaint: Dizziness, Abdominal Pain Narrative: 63 y/o F presents here with dizziness, generalized abdominal pain, and diaphoresis with PMH of GI bleed and hypertension. The patient presents here from home via EMS for further evaluation of dizziness, generalized abdominal pain, and diaphoresis. She initially reports that she initially developed mild diffuse abdominal discomfort started /Friday (02/25 or 02/26). Initially concerned she may have a upper GI bleed given she has had to be on Diclofenac due to hip pain (L) and is in the process of getting a replacement, no set date. Friday (02/27) she went to bed and had poor sleep related to her hip pain. Woke around 02:00 a.m. diaphoretic, dizzy, and abdominal discomfort with urge to pass a bowel movement. While going to the bathroom she believes she had a syncopal episode vs fell asleep on the toilet, suspects it was a syncopal episode. No chest pain, palpitations, nausea or vomiting pre or post likely syncope. Denies trauma. Patient did not have fall from the toilet. Woke this morning and continued to have the same symptoms which prompted the patient to seek care. Patient then passed a large black and tarry bowel movement today at around 10:00 a.m. Had a second blood bowel movement around an hour later with more blood that the bedside RN describes as a very large blood clot with dark tarry stool, liquid. She has a history of GI bleed with last occurrence was approximately a year ago due to gastric ulcer, seen at [facility]. First was in 2014. Upper GI bleeds have always been attributed to NSAID use. Reports she may have had minor bleeds (noted due to change in stool color) and she would cease taking NSAIDs and bleed would clear up without evaluation or medical intervention. Follows with [facility]. Endorsing chills and body aches. Diaphoresis has resolved. Abdominal pain has been persistent and described dull, diffuse, and constant. Denies of fever, chest pain, or shortness a breath. Patient found to be hyperglycemic on initial lab work, no known hx of diabetes. Last colonoscopy was around 2012 and was done at [facility], no abnormalities per patient. Last EGD was 3-4 years ago at [facility] Initial VS at presentation: HR 133, RR 22, 94/67, and 100% on RA. ED workup showed: WBC 16.8, hemoglobin 10.1 (previously 15.3 on 01/19/2024), normal coags, potassium 5.2, creatinine 0.6 and GFR >60, glucose 241. CT of the abdomen/pelvis showed moderate-sized sliding hiatal hernia and diffuse hepatic steatosis. Review of Systems Review of Systems: All systems reviewed & are unremarkable except as noted in HPI and below PMFSH Past Medical History Medical History Gastric ulcer due to nonsteroidal antiinflammatory drug (NSAID) therapy GI bleed HTN (hypertension) Post-menopausal PVCs (premature ventricular contractions) Surgical History Surgical History H/O shoulder surgery History of Norbert fundoplication Hx of colonoscopy ~2016 Status post dilatation of esophageal stricture Family History Family History Other Hypertension Social History Social History Smoking status: Never smoker Alcohol intake: current Alcohol use details: occasional Substance use: never Do You Feel Safe in your Home?: Yes Lack of Transportation: No Lack of Food: Never True Current Housing: I Have Housing Concerned About Future Housing: No Difficulty Paying Gas/Electric Bills: No Difficulty Paying for Meds: No Currently Unemployed: No Education: High School Diploma/GED Difficulty w/ Childcare or Family Care: No Living arrangements: with family Gender identity (if verbalized by the patient): Female Spiritual care concerns: No Meds Home Medications and Allergies Home Medications Medication Instructions Recorded Confirmed Type diclofenac sodium 50 mg 50 mg PO BID 02/29/24 02/29/24 History tablet,delayed release glycopyrrolate 2 mg tablet 2 mg PO DAILY PRN Sweating 02/29/24 02/29/24 History lisinopril 40 mg tablet 40 mg PO DAILY 02/29/24 02/29/24 History melatonin 10 mg tablet 10 mg PO HS PRN Insomnia 02/29/24 02/29/24 History Allergies Allergy/AdvReac Type Severity Reaction Status Date / Time No Known Allergies Allergy Mild Verified 02/29/24 15:31 Vital Signs Vital Signs - 24 hr 02/29/24 10:01 Pulse Rate 133 H Respiratory Rate 22 H Blood Pressure 94/67 L Pulse Oximetry 100 Oxygen Delivery Room Air Exam Const: General: comfortable and no acute distress Other: , female, mildly ill-appearing HENMT: Face/Nose/Sinus: Normal nares present Mouth: Yes moist mucous membranes Eyes: General: appearance normal, both eyes and all related structures Sclera: sclerae normal Pupils: Equal, round and reactive pupils present EOM: EOMs intact bilaterally Resp: Effort & Inspection: normal respiratory effort Auscultation: clear to auscultation bilaterally Cardio: Rate: regular rate Rhythm: regular rhythm Other: S1-S2 present without murmur, rub, ectopy GI: Other: Abdomen rounded, soft, hyperactive to normoactive bowel sounds in all quadrants. No tenderness with palpation. Skin: General skin exam: normal color and no rashes or lesions noted Wounds: no wounds Neuro: Speech: normal speech Motor exam (neuro): 5/5 motor strength present throughout Sensory Exam: normal sensation Other: A&O x4 Extrem: General: normal to inspection Psych: Mental Status: mental status grossly normal Affect: normal affect Other: Good insight and judgment, pleasant H&P: Results Labs Labs: Short CBC 02/29/24 Range/Units 11:22 WBC 16.8 H (4.5-10.0) K/mm3 Hgb 10.1 L D (12.0-15.0) g/dL Hct 31.2 L (37.0-47.0) % Plt Count 234 (150-375) k/mm3 [facility] 02/29/24 10:39 Sodium 138 Potassium 5.2 H Chloride 111 H Carbon Dioxide 22 BUN 58 H D Creatinine 0.60 L Glucose 241 H Calcium 8.2 L Liver Function 02/29/24 Range/Units 10:39 Total Bilirubin 0.6 (0.2-1.3) mg/dL AST 17 (14-36) U/L ALT 17 (6-35) U/L Alkaline Phosphatase 50 (38-126) U/L Albumin 3.3 L (3.5-5.1) g/dL Assessment and Plan Assessment and plan (1) Acute GI bleeding: Code(s): K92.2 - Gastrointestinal hemorrhage, unspecified Status: Acute Assessment and Plan: - Hgb 10.1, previously 15.3 on 01/19/2024 - MCV and MCHC within normal limits - melanotic stool observed in ED with large blood clot - not on anticoagulation, has been taking NSAID (diclofenac) hold home Diclofenac and Glycopyrrolate - CT abd/pelvis: 1. Moderate-sized sliding hiatal hernia. 2. Diffuse hepatic steatosis. - GI consulted, awaiting recs - trend H&H - started on pantoprazole 40 IVP daily - last colonoscopy in 2012 at [facility], no abnormalities per patient - last EGD 3-4 years ago at [facility] - WBC 16.8, add C diff and stool culture - IV fluids: 2L bolus -> 150 mL/hr. d/c when appropriate. - monitor I&Os, hemodynamic stability, and telemetry (2) HTN (hypertension): Qualifiers: Hypertension type: primary hypertension Qualified Code(s): I10 - Essential (primary) hypertension Code(s): I10 - Essential (primary) hypertension Status: Chronic Assessment and Plan: - chronic, currently 100/62 - home medications: hold lisinopril 40 mg daily until BP improved - monitor Plan Diet: Clear liquid GI Prophylaxis: Pantoprazole IVP DVT Prophylaxis: SCDs Lines: Peripheral Code Status: Full code Quality VTE Prophylaxis VTE prophylaxis: mechanical ordered Hospitalist MIPS Advance Care Plan I have confirmed that the patient's Advanced Care Plan is present, code status is documented, or surrogate decision maker is listed in patient medical record.: Yes Medication Reconciliation I have utilized all available resources to obtain, update and review the patients current medications (includes all prescriptions, OTC, herbals, cannabis, and nutritional supplements).: Yes
[2024-02-29 13:03] VITALS: BP 100/62; PULSE 121; RESP 16; TEMP 36.6; O2SAT 99
[2024-02-29 13:18] LABS: Hematocrit 32.5 % (37.0-47.0); Hemoglobin 10.6 g/dL (12.0-15.0)
[2024-02-29 14:40] VITALS: BP 101/71; PULSE 117; RESP 14; TEMP 37; O2SAT 100
[2024-02-29 15:17] VITALS: BMI 35.2
--- NOTE | 2024-02-29 15:25 | ADMGEN ---
This patient, Octavia Garcia, was admitted to [facility] Surg Room 322-01. Patient/family oriented to hospital policies and general routines including ID bracelet, bed and alarms, visiting hours, pain management, procedures, bathroom and other care routines, personal items, smoking policy, room service/diet, and visiting hours. Information on how to activate the Rapid Response Team has been discussed. Patient/Family are encouraged to report perceived risks to care and to ask questions if they do not understand what they are told or what they should do.
--- NOTE | 2024-02-29 15:43 | PC.NURSE ---
Rectal tube removed at 15:35. Pt. tolerated procedure well. +BM black tarry after removal.
[2024-02-29] MEDS: SODIUM CHLORIDE 0.9% IV 1,000 ML 150 ML IV CONT ×2 (15:48→20:24)
--- NOTE | 2024-02-29 16:12 | P.CONGI_ITS ---
Assessment and Plan Assessment and plan (1) Acute GI bleeding: Code(s): K92.2 - Gastrointestinal hemorrhage, unspecified Status: Acute Assessment and Plan: here with ugib, noted melena in setting of nsaid's iv protonix, npo and will do EGD tomorrow she understands that should not use nsaid's if possible more recommendations after egd ct scan was done, reading pending (2) Melena: Code(s): K92.1 - Melena Status: Acute Assessment and Plan: monitor for more signs of bleeding (3) Syncope: Code(s): R55 - Syncope and collapse Status: Acute Assessment and Plan: probably from ugib monitor (4) Epigastric pain: Code(s): R10.13 - Epigastric pain Status: Acute (5) NSAID long-term use: Code(s): Z79.1 - [facility] (current) use of non-steroidal anti-inflammatories (NSAID) Status: Acute (6) Acute blood loss anemia: Code(s): D62 - Acute posthemorrhagic anemia Status: Acute Assessment and Plan: serial h/h, transfuse if below 7 GI Consult Note Consult date/time: 02/29/24 16:12 Reason for consult: melena, gib HPI: Octavia Garcia is a 63 year old female with h/o arthritis using daily diclofenac for years, remote history of stomach ulcer but not using ppi. She is here with 2 days of moderated epigastric discomfort, she thought could be an ulcer and discontinued using her nsaid's but yesterday after using restroom she passed out and became clammy and started sweating. Then she had had several dark tarry stools and came to hospital. hgb 10 from 15 2 months ago, elevated bun. Started on ppi and admitted to hospital. She had EGD years ago, last colonoscopy 2015. Review of Systems Constitutional: Constitutional: Reports fatigue Eyes: Eyes: Denies blurry vision ENT: Reports Normal hearing present Cardiovascular: Cardiovascular: Denies chest pain Respiratory: Respiratory: Denies cough Gastrointestinal: Gastrointestinal: Reports abdominal pain, Reports melena and Denies vomiting Genitourinary: Genitourinary: Denies hematuria Musculoskeletal: Musculoskeletal: Reports arthralgias (h/o arthritis) Integumentary/Breasts: Skin/Breast: Denies rash Neurologic: Denies Abnormal speech present Psychiatric: Psychiatric: Denies behavioral changes [facility] Past Medical History Medical History (Updated 02/29/24 @ 16:16 by Jose Allan MD) Acute blood loss anemia Epigastric pain Gastric ulcer due to nonsteroidal antiinflammatory drug (NSAID) therapy GI bleed HTN (hypertension) Melena NSAID long-term use Post-menopausal PVCs (premature ventricular contractions) Syncope Surgical History Surgical History H/O shoulder surgery History of Norbert fundoplication Hx of colonoscopy ~2016 Status post dilatation of esophageal stricture Family History Family History Other Hypertension Social History Social History Smoking status: Never smoker Alcohol intake: current Alcohol use details: occasional Substance use: never Do You Feel Safe in your Home?: Yes Lack of Transportation: No Lack of Food: Never True Current Housing: I Have Housing Concerned About Future Housing: No Difficulty Paying Gas/Electric Bills: No Difficulty Paying for Meds: No Currently Unemployed: No Education: High School Diploma/GED Difficulty w/ Childcare or Family Care: No Living arrangements: with family Gender identity (if verbalized by the patient): Female Spiritual care concerns: No Meds Home Medications and Allergies Home Medications Medication Instructions Recorded Confirmed Type diclofenac sodium 50 mg 50 mg PO BID 02/29/24 02/29/24 History tablet,delayed release glycopyrrolate 2 mg tablet 2 mg PO DAILY PRN Sweating 02/29/24 02/29/24 History lisinopril 40 mg tablet 40 mg PO DAILY 02/29/24 02/29/24 History melatonin 10 mg tablet 10 mg PO HS PRN Insomnia 02/29/24 02/29/24 History Allergies Allergy/AdvReac Type Severity Reaction Status Date / Time No Known Allergies Allergy Mild Verified 02/29/24 15:31 Vital Signs Vital Signs - 24 hr 02/29/24 10:01 02/29/24 11:00 02/29/24 12:00 Temperature 98.0 F Pulse Rate 133 H 125 H 120 H Respiratory Rate 22 H 14 14 Blood Pressure 94/67 L 101/70 115/70 Pulse Oximetry 100 99 99 Oxygen Delivery Room Air 02/29/24 13:03 02/29/24 14:40 Temperature 98 F 98.6 F Pulse Rate 121 H 117 H Respiratory Rate 16 14 Blood Pressure 100/62 101/71 Pulse Oximetry 99 100 Oxygen Delivery Exam Const: General: comfortable and no acute distress HENMT: Face/Nose/Sinus: Normal nares present Eyes: General: appearance normal, both eyes and all related structures Neck: Neck: supple Resp: Auscultation: clear to auscultation bilaterally Cardio: Rate: regular rate Rhythm: regular rhythm GI: Inspection: non-distended GI Palp: Yes Soft to palpation and No Tenderness to palpation present (GI) Auscultation: normal bowel sounds Skin: General skin exam: normal color Neuro: Speech: normal speech Motor exam (neuro): 5/5 motor strength present throughout Extrem: General: normal to inspection Psych: Mental Status: mental status grossly normal Results Labs 02/29/24 12:58 02/29/24 10:39 Labs: Short CBC 02/29/24 02/29/24 Range/Units 11:22 12:58 WBC 16.8 H (4.5-10.0) K/mm3 Hgb 10.1 L D 10.6 L (12.0-15.0) g/dL Hct 31.2 L 32.5 L (37.0-47.0) % Plt Count 234 (150-375) k/mm3 [facility] 02/29/24 10:39 Sodium 138 Potassium 5.2 H Chloride 111 H Carbon Dioxide 22 BUN 58 H D Creatinine 0.60 L Glucose 241 H Calcium 8.2 L Liver Function 02/29/24 Range/Units 10:39 Total Bilirubin 0.6 (0.2-1.3) mg/dL AST 17 (14-36) U/L ALT 17 (6-35) U/L Alkaline Phosphatase 50 (38-126) U/L Albumin 3.3 L (3.5-5.1) g/dL
[2024-02-29 18:58] LABS: Hematocrit 25.1 % (37.0-47.0); Hemoglobin 8.1 g/dL (12.0-15.0)
[2024-02-29 22:00] VITALS: BP 116/72; PULSE 120; RESP 22; TEMP 36.1; O2SAT 98
[2024-02-29] MEDS: HYDROcodone/acetaminophen (*CRX) 5-325 MG TABLET 1 TAB PO (23:37)
[2024-03-01] VITALS (12 sets, daily range): BP systolic 107–142; BP diastolic 56–80; PULSE 96–109; RESP 15–22; TEMP 36.2–37.4; O2SAT 10–100
[2024-03-01 00:52] LABS: Hematocrit 23.7 % (37.0-47.0); Hemoglobin 7.4 g/dL (12.0-15.0)
[2024-03-01 06:26] LABS: Hematocrit 22.5 % (37.0-47.0)
[2024-03-01 06:28] LABS: Basophils Percent Auto 0.5 % (0.2-1.2); Eosinophils Absolute Auto 0.3 K/mm3 (0-0.3); Eosinophils Percent Auto 4.1 % (0-4.4); Hematocrit 22.9 % (37.0-47.0); Immature Granulocyte Absolute 0.03 K/mm3 (0.00-0.031); Immature Granulocyte Percent A 0.4 % (0-0.5); Lymphocytes Absolute Auto 2.08 K/mm3 (0.9-3.2); Lymphocytes Percent Auto 28.1 % (18.3-44.2); Mean Corpuscular HGB Conc 30.6 g/dl (32-36); Mean Corpuscular Hemoglobin 31.5 pg (26-34); Mean Corpuscular Volume 103.2 fl (80-100); Monocytes Absolute Auto 0.5 K/mm3 (0.1-0.6); Monocytes Percent Auto 7.2 % (2.6-8.5); Neutrophils Absolute Auto 4.4 K/mm3 (1.3-6.7); Neutrophils Percent Auto 59.7 % (45.5-73.1); Platelet Count Result 155 k/mm3 (150-375); Red Blood Count 2.22 M/mm3 (4.2-5.4); White Blood Count 7.4 K/mm3 (4.5-10.0)
[2024-03-01] MEDS: SODIUM CHLORIDE 0.9% IV 1,000 ML 150 ML IV CONT (06:31)
[2024-03-01 06:42] LABS: Anion Gap 2 mmol/L (4-12); Blood Urea Nitrogen 32 mg/dL (7-17); Calcium 7.1 mg/dL (8.4-10.2); Carbon Dioxide 24 mmol/L (22-30); Chloride 112 mmol/L (98-107); Estimated CRCL calculation 114 ml/min; Estimated Glomerular Filt Rate > 60; Glucose 120 mg/dL (65-110); Potassium 3.9 mmol/L (3.4-5.0); Sodium 138 mmol/L (137-145)
[2024-03-01] MEDS: PANTOPRAZOLE SODIUM IV 40 MG VIAL IV PUSH (08:00)
[2024-03-01] MEDS: HYDROcodone/acetaminophen (*CRX) 5-325 MG TABLET 1 TAB PO ×3 (08:00→20:18)
--- NOTE | 2024-03-01 08:43 | P.PNIM_ITS ---
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-steroidal anti-inflammatories (NSAID) Status: Acute (3) Epigastric pain: Code(s): R10.13 - Epigastric pain Status: Acute (4) Syncope: Code(s): R55 - Syncope and collapse Status: Acute (5) Melena: Code(s): K92.1 - Melena Status: Acute (6) Acute GI bleeding: Code(s): K92.2 - Gastrointestinal hemorrhage, unspecified Status: Acute (7) HTN (hypertension): Qualifiers: Hypertension type: primary hypertension Qualified Code(s): I10 - Essential (primary) hypertension Code(s): I10 - Essential (primary) hypertension Status: Chronic Plan (1) Acute GI bleeding: Code(s): K92.2 - Gastrointestinal hemorrhage, unspecified Status: Acute Assessment and Plan: - Hgb 10.1, previously 15.3 on 01/19/2024 - MCV and MCHC within normal limits - melanotic stool observed in ED with large blood clot - not on anticoagulation, has been taking NSAID (diclofenac) hold home Diclofenac and Glycopyrrolate - CT abd/pelvis: 1. Moderate-sized sliding hiatal hernia. 2. Diffuse hepatic steatosis. - GI consulted, awaiting recs - trend H&H - started on pantoprazole 40 IVP daily - last colonoscopy in 2012 at [facility], no abnormalities per patient - last EGD 3-4 years ago at [facility] - WBC 16.8, add C diff and stool culture - IV fluids: 2L bolus -> 150 mL/hr. d/c when appropriate. - monitor I&Os, hemodynamic stability, and telemetry Acute on chronic blood-loss anemia Hemoglobin 7.0, hemoglobin 10.6 yesterday Blood pressure low Provide 1 pack RBC (2) HTN (hypertension): Qualifiers: Hypertension type: primary hypertension Qualified Code(s): I10 - Essential (primary) hypertension Code(s): I10 - Essential (primary) hypertension Status: Chronic Assessment and Plan: - chronic, currently 100/62 - home medications: hold lisinopril 40 mg daily until BP improved - monitor Plan Diet: Clear liquid GI Prophylaxis: Pantoprazole IVP DVT Prophylaxis: SCDs Lines: Peripheral Code Status: Full code Subjective Date/time seen: 03/01/24 08:43 Interval history: Patient is afebrile, blood pressure stable but on the lower side no O2 dissection over night. Hemoglobin 7.0, down from 10.6 yesterday. GI performs EGD Exam Narrative: GENERAL: Pleasant, in no acute distress. Well-nourished. - EYES: EOMI. Anicteric. - HENT: Moist mucous membranes. Pale - LUNGS: Clear to auscultation bilateral ly, no wheezing, rhonchi, or rales. - CARDIOVASCULAR: Regular rate and rhyth m. No murmur. No JVD. - ABDOMEN: Soft, non-tender and non-dist ended. No palpable masses. - EXTREMITIES: No edema. Peripheral puls es 2+. Non-tender. - NEUROLOGIC: No focal neurological defi cits. CN II-XII grossly intact. - PSYCHIATRIC: Awake, Alert and oriented x 3. Appropriate mood and affect. - SKIN: No rashes or lesions. Warm. - LYMPH: No cervical lymphadenopathy. Objective Data Vital Signs Vital Signs: Vital Signs - 24 hr 02/29/24 10:01 02/29/24 11:00 02/29/24 12:00 Temperature 98.0 F Pulse Rate 133 H 125 H 120 H Respiratory Rate 22 H 14 14 Blood Pressure 94/67 L 101/70 115/70 Pulse Oximetry 100 99 99 Oxygen Delivery Room Air 02/29/24 13:03 02/29/24 14:40 02/29/24 15:17 Temperature 98 F 98.6 F Pulse Rate 121 H 117 H Respiratory Rate 16 14 Blood Pressure 100/62 101/71 Pulse Oximetry 99 100 Oxygen Delivery Room Air 02/29/24 22:00 02/29/24 20:00 03/01/24 06:00 Temperature 97.0 F L 97.7 F Pulse Rate 120 H 109 H Respiratory Rate 22 H 22 H Blood Pressure 116/72 108/70 Pulse Oximetry 98 99 Oxygen Delivery Room Air 03/01/24 08:00 Temperature Pulse Rate Respiratory Rate Blood Pressure Pulse Oximetry Oxygen Delivery Room Air Intake/Output Intake/Output: Intake & Output 02/27/24 02/28/24 02/29/24 03/01/24 23:59 23:59 23:59 23:59 Intake Total 3240 1350 Balance 3240 1350 Meds/Results Medications: Active Medications Generic Name Dose Route Start Last Admin Trade Name Freq PRN Reason Stop Dose Admin Acetaminophen 650 mg 02/29/24 15:42 Acetaminophen 325 Mg Tablet PO Q4H PRN Mild Pain (1-3) or Fever Hydrocodone Bitart/Acetaminophen 1 tab 02/29/24 15:42 03/01/24 08:00 Hydrocodone/Acetaminophen (*Crx) 5-325 Mg Tablet PO 1 tab Q6H PRN Administration Pain Rated 4-6 Sodium Chloride 1,000 mls @ 150 mls/hr 02/29/24 12:15 03/01/24 06:31 Normal Saline Iv IV CONT 150 mls/hr .[id number] VIANNEY Administration Melatonin 10 mg 02/29/24 15:37 Melatonin 5 Mg Tablet PO HS PRN Insomnia Morphine Sulfate 4 mg 02/29/24 12:13 02/29/24 19:00 Morphine Sulfate (*Crx) 4 Mg/Ml Inj IV PUSH 4 mg Q2H PRN Administration Pain Rated 7-10 Ondansetron HCl 4 mg 02/29/24 12:13 Ondansetron Inj 4 Mg/2 Ml Vial IV PUSH Q4H PRN Nausea Pantoprazole Sodium 40 mg 03/01/24 09:00 03/01/24 08:00 Pantoprazole Sodium Iv 40 Mg Vial IV PUSH 40 mg QAM VIANNEY Administration Radiology Results: ITS Impressions Abdomen/Pelvis CT 02/29/24 12:45 IMPRESSION: 1. Moderate-sized sliding hiatal hernia. 2. Diffuse hepatic steatosis. Labs Labs: Laboratory Results - last 24 hr 02/29/24 02/29/24 02/29/24 10:39 11:22 11:23 WBC 16.8 H RBC 3.14 L Hgb 10.1 L D Hct 31.2 L MCV 99.4 MCH 32.2 MCHC 32.4 RDW 13.0 Plt Count 234 MPV 10.5 H Immature Gran % (Auto) 0.8 H Neut % (Auto) 87.1 H Lymph % (Auto) 7.2 L [place] % (Auto) 4.2 Eos % (Auto) 0.3 Baso % (Auto) 0.4 Lymph # (Auto) 1.22 [place] # (Auto) 0.7 H Eos # (Auto) 0.1 Baso # (Auto) 0.1 Abs Immat Gran (auto) 0.14 H Absolute Neuts (auto) 14.7 H Absolute Nucleated RBC 0.000 Nucleated RBC % 0.0 PT 13.9 INR 1.0 APTT 23.0 Sodium 138 Potassium 5.2 H Chloride 111 H Carbon Dioxide 22 Anion Gap 5 BUN 58 H D Creatinine 0.60 L Estim Creat Clear Calc 114 Estimated GFR > 60 Glucose 241 H Calcium 8.2 L Total Bilirubin 0.6 AST 17 ALT 17 Alkaline Phosphatase 50 Total Protein 6.0 L Albumin 3.3 L Blood Type O Negative Antibody Screen Negative 02/29/24 02/29/24 03/01/24 12:58 18:52 00:34 WBC RBC Hgb 10.6 L 8.1 L 7.4 L Hct 32.5 L 25.1 L 23.7 L MCV MCH MCHC RDW Plt Count MPV Immature Gran % (Auto) Neut % (Auto) Lymph % (Auto) [place] % (Auto) Eos % (Auto) Baso % (Auto) Lymph # (Auto) [place] # (Auto) Eos # (Auto) Baso # (Auto) Abs Immat Gran (auto) Absolute Neuts (auto) Absolute Nucleated RBC Nucleated RBC % PT INR APTT Sodium Potassium Chloride Carbon Dioxide Anion Gap BUN Creatinine Estim Creat Clear Calc Estimated GFR Glucose Calcium Total Bilirubin AST ALT Alkaline Phosphatase Total Protein Albumin Blood Type Antibody Screen 03/01/24 03/01/24 03/01/24 06:13 06:13 06:13 WBC 7.4 RBC 2.22 L Hgb 7.0 L 7.0 L Hct 22.9 L 22.5 L MCV 103.2 H MCH 31.5 MCHC 30.6 L RDW 13.0 Plt Count 155 MPV 10.0 Immature Gran % (Auto) 0.4 Neut % (Auto) 59.7 Lymph % (Auto) 28.1 [place] % (Auto) 7.2 Eos % (Auto) 4.1 Baso % (Auto) 0.5 Lymph # (Auto) 2.08 [place] # (Auto) 0.5 Eos # (Auto) 0.3 Baso # (Auto) 0.0 Abs Immat Gran (auto) 0.03 Absolute Neuts (auto) 4.4 Absolute Nucleated RBC 0.000 Nucleated RBC % 0.0 PT INR APTT Sodium 138 Potassium 3.9 Chloride 112 H Carbon Dioxide 24 Anion Gap 2 L BUN 32 H D Creatinine 0.60 L Estim Creat Clear Calc 114 Estimated GFR > 60 Glucose 120 H Calcium 7.1 L Total Bilirubin AST ALT Alkaline Phosphatase Total Protein Albumin Blood Type Antibody Screen
--- NOTE | 2024-03-01 09:28 | PC.NURSE ---
To GI Lab per [wheelchair ], IV [20 L AC, 18 R hand]. Report given to [Mica].
[2024-03-01] MEDS: LACTATED RINGERS 1,000 ML 150 ML IV CONT (09:32)
--- NOTE | 2024-03-01 09:54 | WPDANESEPPF ---
Anes - Initial Pre Proc Eval Procedure: Operation Date: 03/01/24 15:00 Proposed Procedures p Esophagogastroduodenoscopy - Jose Allan MD Date/Time: 03/01/24 09:54 Surgeon: Prashant Jett MD Pre Op Diagnosis: GI Bleed/Diarrhea Patient Data Age: 63 Gender: F Height: 1.83 m Weight: 118 kg Last Vital Signs Temp 97.2 F L 03/01/24 09:35 Pulse 108 H 03/01/24 09:35 Resp 20 03/01/24 09:35 BP 126/69 03/01/24 09:35 Pulse Ox 98 03/01/24 09:35 O2 Del Method Room Air 03/01/24 09:35 Allergies Allergy/AdvReac Type Severity Reaction Status Date / Time No Known Allergies Allergy Mild Verified 02/29/24 15:31 Home Medications Medication Instructions Recorded Confirmed Type diclofenac sodium 50 mg 50 mg PO BID 02/29/24 02/29/24 History tablet,delayed release glycopyrrolate 2 mg tablet 2 mg PO DAILY PRN Sweating 02/29/24 02/29/24 History lisinopril 40 mg tablet 40 mg PO DAILY 02/29/24 02/29/24 History melatonin 10 mg tablet 10 mg PO HS PRN Insomnia 02/29/24 02/29/24 History Laboratory Tests 02/29/24 02/29/24 02/29/24 10:39 11:22 11:23 WBC 16.8 H K/mm3 (4.5-10.0) RBC 3.14 L M/mm3 (4.2-5.4) Hgb 10.1 L D g/dL (12.0-15.0) Hct 31.2 L % (37.0-47.0) MCV 99.4 fl (80-100) MCH 32.2 pg (26-34) MCHC 32.4 g/dl (32-36) RDW 13.0 % (11.5-14.5) Plt Count 234 k/mm3 (150-375) MPV 10.5 H fl (7.4-10.4) Immature Gran % (Auto) 0.8 H % (0-0.5) Neut % (Auto) 87.1 H % (45.5-73.1) Lymph % (Auto) 7.2 L % (18.3-44.2) Burnett % (Auto) 4.2 % (2.6-8.5) Eos % (Auto) 0.3 % (0-4.4) Baso % (Auto) 0.4 % (0.2-1.2) Lymph # (Auto) 1.22 K/mm3 (0.9-3.2) Burnett # (Auto) 0.7 H K/mm3 (0.1-0.6) Eos # (Auto) 0.1 K/mm3 (0-0.3) Baso # (Auto) 0.1 K/mm3 (0.0-0.1) Abs Immat Gran (auto) 0.14 H K/mm3 (0.00-0.031) Absolute Neuts (auto) 14.7 H K/mm3 (1.3-6.7) Absolute Nucleated RBC 0.000 K/mm3 (0.0-0.012) Nucleated RBC % 0.0 % (0.0-0.2) PT 13.9 Seconds (11.1-14.7) INR 1.0 APTT 23.0 Seconds (22.3-36.8) Sodium 138 mmol/L (137-145) Potassium 5.2 H mmol/L (3.4-5.0) Chloride 111 H mmol/L (98-107) Carbon Dioxide 22 mmol/L (22-30) Anion Gap 5 mmol/L (4-12) BUN 58 H D mg/dL (7-17) Creatinine 0.60 L mg/dL (0.7-1.0) Estim Creat Clear Calc 114 ml/min Estimated GFR > 60 (59 - ) Glucose 241 H mg/dL (65-110) Calcium 8.2 L mg/dL (8.4-10.2) Total Bilirubin 0.6 mg/dL (0.2-1.3) AST 17 U/L (14-36) ALT 17 U/L (6-35) Alkaline Phosphatase 50 U/L (38-126) Total Protein 6.0 L g/dL (6.3-8.2) Albumin 3.3 L g/dL (3.5-5.1) Blood Type O Negative Antibody Screen Negative Crossmatch See Detail 02/29/24 02/29/24 03/01/24 12:58 18:52 00:34 WBC RBC Hgb 10.6 L g/dL 8.1 L g/dL 7.4 L g/dL (12.0-15.0) (12.0-15.0) (12.0-15.0) Hct 32.5 L % 25.1 L % 23.7 L % (37.0-47.0) (37.0-47.0) (37.0-47.0) MCV MCH MCHC RDW Plt Count MPV Immature Gran % (Auto) Neut % (Auto) Lymph % (Auto) Burnett % (Auto) Eos % (Auto) Baso % (Auto) Lymph # (Auto) Burnett # (Auto) Eos # (Auto) Baso # (Auto) Abs Immat Gran (auto) Absolute Neuts (auto) Absolute Nucleated RBC Nucleated RBC % PT INR APTT Sodium Potassium Chloride Carbon Dioxide Anion Gap BUN Creatinine Estim Creat Clear Calc Estimated GFR Glucose Calcium Total Bilirubin AST ALT Alkaline Phosphatase Total Protein Albumin Blood Type Antibody Screen Crossmatch 03/01/24 03/01/24 03/01/24 06:13 06:13 06:13 WBC 7.4 K/mm3 (4.5-10.0) RBC 2.22 L M/mm3 (4.2-5.4) Hgb 7.0 L g/dL 7.0 L g/dL (12.0-15.0) (12.0-15.0) Hct 22.9 L % 22.5 L % (37.0-47.0) (37.0-47.0) MCV 103.2 H fl (80-100) MCH 31.5 pg (26-34) MCHC 30.6 L g/dl (32-36) RDW 13.0 % (11.5-14.5) Plt Count 155 k/mm3 (150-375) MPV 10.0 fl (7.4-10.4) Immature Gran % (Auto) 0.4 % (0-0.5) Neut % (Auto) 59.7 % (45.5-73.1) Lymph % (Auto) 28.1 % (18.3-44.2) Burnett % (Auto) 7.2 % (2.6-8.5) Eos % (Auto) 4.1 % (0-4.4) Baso % (Auto) 0.5 % (0.2-1.2) Lymph # (Auto) 2.08 K/mm3 (0.9-3.2) Burnett # (Auto) 0.5 K/mm3 (0.1-0.6) Eos # (Auto) 0.3 K/mm3 (0-0.3) Baso # (Auto) 0.0 K/mm3 (0.0-0.1) Abs Immat Gran (auto) 0.03 K/mm3 (0.00-0.031) Absolute Neuts (auto) 4.4 K/mm3 (1.3-6.7) Absolute Nucleated RBC 0.000 K/mm3 (0.0-0.012) Nucleated RBC % 0.0 % (0.0-0.2) PT INR APTT Sodium 138 mmol/L (137-145) Potassium 3.9 mmol/L (3.4-5.0) Chloride 112 H mmol/L (98-107) Carbon Dioxide 24 mmol/L (22-30) Anion Gap 2 L mmol/L (4-12) BUN 32 H D mg/dL (7-17) Creatinine 0.60 L mg/dL (0.7-1.0) Estim Creat Clear Calc 114 ml/min Estimated GFR > 60 (59 - ) Glucose 120 H mg/dL (65-110) Calcium 7.1 L mg/dL (8.4-10.2) Total Bilirubin AST ALT Alkaline Phosphatase Total Protein Albumin Blood Type Antibody Screen Crossmatch Patient hx anesthesia problems: none Family hx anesthesia problems: none Results Review: All pre-operative results and documents have been reviewed as part of the pre-operative evaluation. FORMERLY [facility] Past Medical History Medical History (Updated 02/29/24 @ 16:16 by Jose Allan MD) Acute blood loss anemia Epigastric pain Gastric ulcer due to nonsteroidal antiinflammatory drug (NSAID) therapy GI bleed HTN (hypertension) Melena NSAID long-term use Post-menopausal PVCs (premature ventricular contractions) Syncope Surgical History Surgical History H/O shoulder surgery History of Norbert fundoplication Hx of colonoscopy ~2016 Status post dilatation of esophageal stricture Family History Family History Other Hypertension Social History Social History Smoking status: Never smoker Alcohol intake: current Alcohol use details: occasional Substance use: never Do You Feel Safe in your Home?: Yes Lack of Transportation: No Lack of Food: Never True Current Housing: I Have Housing Concerned About Future Housing: No Difficulty Paying Gas/Electric Bills: No Difficulty Paying for Meds: No Currently Unemployed: No Education: High School Diploma/GED Difficulty w/ Childcare or Family Care: No Living arrangements: with family Gender identity (if verbalized by the patient): Female Spiritual care concerns: No Anes - Eval Final PreProcedure Day of Procedure 03/01/24 09:54 Patient weight: obese Heart: regular rate and rhythm Lungs: clear to auscultation Airway: Mallampati scale class II Neurological: alert and oriented Last oral intake: >/= 8 hours ASA classification: IV Emergent: no Anesthetic plan: proceed Anesthesia type and monitoring: general GIVS and standard monitoring Results Review: All pre-operative results and documents have been reviewed as part of the pre-operative evaluation. Informed Consent: The patient's anesthetic plan and its attendant risks and benefits were discussed with the patient/family/POA. Questions were solicited and answers provided to the satisfaction of the patient/family/POA.
[2024-03-01] MEDS: SODIUM CHLORIDE 0.9% IV 250 ML 30 ML IV CONT (11:09)
[2024-03-01] MEDS: PANTOPRAZOLE 40 MG TABLET PO (20:18)
[2024-03-02] MEDS: MORPHINE SULFATE (*CRX) 4 MG/ML INJ IV PUSH ×2 (00:28→04:25)
[2024-03-02 06:00] VITALS: BP 131/81; PULSE 102; RESP 18; TEMP 37.5; O2SAT 100
[2024-03-02] MEDS: HYDROcodone/acetaminophen (*CRX) 5-325 MG TABLET 1 TAB PO (06:30)
[2024-03-02 07:21] LABS: Hemoglobin 7.4 g/dL (12.0-15.0); Mean Corpuscular HGB Conc 30.8 g/dl (32-36); Mean Corpuscular Hemoglobin 31.1 pg (26-34); Mean Corpuscular Volume 100.8 fl (80-100); Mean Platelet Volume 9.9 fl (7.4-10.4); Platelet Count Result 156 k/mm3 (150-375); Red Blood Count 2.38 M/mm3 (4.2-5.4); Red Cell Distribution Width 14.2 % (11.5-14.5); White Blood Count 6.2 K/mm3 (4.5-10.0)
[2024-03-02 07:52] LABS: Alanine Aminotransferase 15 U/L (6-35); Albumin Level 2.8 g/dL (3.5-5.1); Alkaline Phosphatase 47 U/L (38-126); Anion Gap -3 mmol/L (4-12); Aspartate Amino Transferase 19 U/L (14-36); Bilirubin,Total 0.3 mg/dL (0.2-1.3); Blood Urea Nitrogen 14 mg/dL (7-17); Calcium 7.6 mg/dL (8.4-10.2); Carbon Dioxide 29 mmol/L (22-30); Chloride 108 mmol/L (98-107); Estimated CRCL calculation 114 ml/min; Estimated Glomerular Filt Rate > 60; Glucose 123 mg/dL (65-110); Sodium 134 mmol/L (137-145)
[2024-03-02] MEDS: PANTOPRAZOLE 40 MG TABLET PO (08:34)
--- NOTE | 2024-03-02 10:46 | P.PNIM_ITS ---
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 (NSAID) Status: Acute (3) Epigastric pain: Code(s): R10.13 - Epigastric pain Status: Acute (4) Syncope: Code(s): R55 - Syncope and collapse Status: Acute (5) Melena: Code(s): K92.1 - Melena Status: Acute (6) Acute GI bleeding: Code(s): K92.2 - Gastrointestinal hemorrhage, unspecified Status: Acute (7) HTN (hypertension): Qualifiers: Hypertension type: primary hypertension Qualified Code(s): I10 - Essential (primary) hypertension Code(s): I10 - Essential (primary) hypertension Status: Chronic Plan (1) Acute GI bleeding: Code(s): K92.2 - Gastrointestinal hemorrhage, unspecified Status: Acute Assessment and Plan: - Hgb 10.1, previously 15.3 on 01/19/2024 - MCV and MCHC within normal limits - melanotic stool observed in ED with large blood clot - not on anticoagulation, has been taking NSAID (diclofenac) hold home Diclofenac and Glycopyrrolate - CT abd/pelvis: 1. Moderate-sized sliding hiatal hernia. 2. Diffuse hepatic steatosis. - GI consulted, awaiting recs - trend H&H - started on pantoprazole 40 IVP daily - last colonoscopy in 2012 at [facility], no abnormalities per patient - last EGD 3-4 years ago at [facility] - WBC 16.8, add C diff and stool culture - IV fluids: 2L bolus -> 150 mL/hr. d/c when appropriate. - monitor I&Os, hemodynamic stability, and telemetry 03/02: EGD showed a single ulcer 5 mL in the duodenal bulb, changed Protonix p.o. Acute on chronic blood-loss anemia Hemoglobin 7.0, hemoglobin 10.6 yesterday Blood pressure low Provide 1 pack RBC Hemoglobin stable, 7.4 today 03/02 Start ferrous sulfate 325 mg daily p.o. (2) HTN (hypertension): Qualifiers: Hypertension type: primary hypertension Qualified Code(s): I10 - Essential (primary) hypertension Code(s): I10 - Essential (primary) hypertension Status: Chronic Assessment and Plan: - home medications: hold lisinopril 40 mg daily upon arrival due to soft blood pressure Now blood pressure bumps up, reduce lisinopril to 20 mg daily p.o. Subjective Date/time seen: 03/02/24 10:46 Interval history: Patient is afebrile, blood pressure stable but on the lower side no O2 dissection over night. Hemoglobin 7.0, down from 10.6 yesterday. 03/02: Patient is afebrile, blood pressure stable, labs reviewed, hemoglobin 7.4 trending up since yesterday, Exam Narrative: GENERAL: Pleasant, in no acute distress. Well-nourished. - EYES: EOMI. Anicteric. - HENT: Moist mucous membranes. Pale - LUNGS: Clear to auscultation bilateral ly, no wheezing, rhonchi, or rales. - CARDIOVASCULAR: Regular rate and rhyth m. No murmur. No JVD. - ABDOMEN: Soft, non-tender and non-dist ended. No palpable masses. - EXTREMITIES: No edema. Peripheral puls es 2+. Non-tender. - NEUROLOGIC: No focal neurological defi cits. CN II-XII grossly intact. - PSYCHIATRIC: Awake, Alert and oriented x 3. Appropriate mood and affect. - SKIN: No rashes or lesions. Warm. - LYMPH: No cervical lymphadenopathy. Objective Data Vital Signs Vital Signs: Vital Signs - 24 hr 03/01/24 11:07 03/01/24 11:24 03/01/24 12:24 Temperature 97.8 F 98.1 F 98.3 F Pulse Rate 97 96 101 H Respiratory Rate 16 16 20 Blood Pressure 118/61 128/69 107/56 L Pulse Oximetry 97 97 100 Oxygen Delivery 03/01/24 13:52 03/01/24 14:00 03/01/24 20:00 Temperature 97.1 F L 97.4 F L Pulse Rate 101 H 100 Respiratory Rate 18 18 Blood Pressure 122/62 128/68 Pulse Oximetry 10 L 100 Oxygen Delivery Room Air 03/01/24 22:00 03/02/24 06:00 Temperature 99.4 F 99.5 F Pulse Rate 107 H 102 H Respiratory Rate 18 18 Blood Pressure 142/80 H 131/81 Pulse Oximetry 100 100 Oxygen Delivery Intake/Output Intake/Output: Intake & Output 02/28/24 02/29/24 03/01/24 03/02/24 23:59 23:59 23:59 23:59 Intake Total 3240 3340 240 Balance 3240 3340 240 Meds/Results Medications: Active Medications Generic Name Dose Route Start Last Admin Trade Name Freq PRN Reason Stop Dose Admin Acetaminophen 650 mg 02/29/24 15:42 Acetaminophen 325 Mg Tablet PO Q4H PRN Mild Pain (1-3) or Fever Hydrocodone Bitart/Acetaminophen 1 tab 02/29/24 15:42 03/01/24 20:18 Hydrocodone/Acetaminophen (*Crx) 5-325 Mg Tablet PO 1 tab Q6H PRN Administration Pain Rated 4-6 Melatonin 10 mg 02/29/24 15:37 Melatonin 5 Mg Tablet PO HS PRN Insomnia Morphine Sulfate 4 mg 02/29/24 12:13 03/02/24 04:25 Morphine Sulfate (*Crx) 4 Mg/Ml Inj IV PUSH 4 mg Q2H PRN Administration Pain Rated 7-10 Ondansetron HCl 4 mg 02/29/24 12:13 Ondansetron Inj 4 Mg/2 Ml Vial IV PUSH Q4H PRN Nausea Pantoprazole Sodium 40 mg 03/01/24 21:00 03/02/24 08:34 Pantoprazole 40 Mg Tablet PO 40 mg Q12HR VIANNEY Administration Radiology Results: ITS Impressions Abdomen/Pelvis CT 02/29/24 12:45 IMPRESSION: 1. Moderate-sized sliding hiatal hernia. 2. Diffuse hepatic steatosis. Labs Labs: Laboratory Results - last 24 hr 02/29/24 03/02/24 10:39 06:52 WBC 6.2 RBC 2.38 L Hgb 7.4 L Hct 24.0 L MCV 100.8 H MCH 31.1 MCHC 30.8 L RDW 14.2 Plt Count 156 MPV 9.9 Sodium 134 L Potassium 4.0 Chloride 108 H Carbon Dioxide 29 Anion Gap -3 L BUN 14 D Creatinine 0.60 L Estim Creat Clear Calc 114 Estimated GFR > 60 Glucose 123 H Calcium 7.6 L Total Bilirubin 0.3 AST 19 ALT 15 Alkaline Phosphatase 47 Total Protein 5.0 L Albumin 2.8 L Blood Type O Negative Antibody Screen Negative Crossmatch See Detail
--- NOTE | 2024-03-02 10:51 | PM.DS ---
DS: Admitting Diagnosis Discharge Date 03/02 Admitting Diagnosis (1) Acute blood loss anemia: Code(s): D62 - Acute posthemorrhagic anemia Status: Acute (2) NSAID long-term use: Code(s): Z79.1 - nursing home (current) use of non-steroidal anti-inflammatories (NSAID) Status: Acute (3) Epigastric pain: Code(s): R10.13 - Epigastric pain Status: Acute (4) Syncope: Code(s): R55 - Syncope and collapse Status: Acute (5) Melena: Code(s): K92.1 - Melena Status: Acute (6) Acute GI bleeding: Code(s): K92.2 - Gastrointestinal hemorrhage, unspecified Status: Acute (7) HTN (hypertension): Qualifiers: Hypertension type: primary hypertension Qualified Code(s): I10 - Essential (primary) hypertension Code(s): I10 - Essential (primary) hypertension Status: Chronic DS: Discharge Diagnosis Discharge Diagnosis (1) Acute blood loss anemia: Code(s): D62 - Acute posthemorrhagic anemia Status: Acute (2) NSAID long-term use: Code(s): Z79.1 - nursing home (current) use of non-steroidal anti-inflammatories (NSAID) Status: Acute (3) Epigastric pain: Code(s): R10.13 - Epigastric pain Status: Acute (4) Syncope: Code(s): R55 - Syncope and collapse Status: Acute (5) Melena: Code(s): K92.1 - Melena Status: Acute (6) Acute GI bleeding: Code(s): K92.2 - Gastrointestinal hemorrhage, unspecified Status: Acute (7) HTN (hypertension): Qualifiers: Hypertension type: primary hypertension Qualified Code(s): I10 - Essential (primary) hypertension Code(s): I10 - Essential (primary) hypertension Status: Chronic DS: Summary Hospital Course Hospital Course: 63 y/o F presents here with dizziness, generalized abdominal pain, and diaphoresis with PMH of GI bleed and hypertension. The patient presents here from home via EMS for further evaluation of dizziness, generalized abdominal pain, and diaphoresis. She initially reports that she initially developed mild diffuse abdominal discomfort started /Friday (02/25 or 02/26). Initially concerned she may have a upper GI bleed given she has had to be on Diclofenac due to hip pain (L) and is in the process of getting a replacement, no set date. Friday (02/27) she went to bed and had poor sleep related to her hip pain. Woke around 02:00 a.m. diaphoretic, dizzy, and abdominal discomfort with urge to pass a bowel movement. While going to the bathroom she believes she had a syncopal episode vs fell asleep on the toilet, suspects it was a syncopal episode. No chest pain, palpitations, nausea or vomiting pre or post likely syncope. Denies trauma. Patient did not have fall from the toilet. Woke this morning and continued to have the same symptoms which prompted the patient to seek care. Patient then passed a large black and tarry bowel movement today at around 10:00 a.m. Had a second blood bowel movement around an hour later with more blood that the bedside RN describes as a very large blood clot with dark tarry stool, liquid. She has a history of GI bleed with last occurrence was approximately a year ago due to gastric ulcer, seen at [facility]. First was in 2014. Upper GI bleeds have always been attributed to NSAID use. Reports she may have had minor bleeds (noted due to change in stool color) and she would cease taking NSAIDs and bleed would clear up without evaluation or medical intervention. Follows with - [facility]. Endorsing chills and body aches. Diaphoresis has resolved. Abdominal pain has been persistent and described dull, diffuse, and constant. Denies of fever, chest pain, or shortness a breath. Patient found to be hyperglycemic on initial lab work, no known hx of diabetes. Last colonoscopy was around 2012 and was done at [facility], no abnormalities per patient. Last EGD was 3-4 years ago at [facility]. Initial VS at presentation: HR 133, RR 22, 94/67, and 100% on RA. ED workup showed: WBC 16.8, hemoglobin 10.1 (previously 15.3 on 01/19/2024), normal coags, potassium 5.2, creatinine 0.6 and GFR >60, glucose 241. CT of the abdomen/pelvis showed moderate-sized sliding hiatal hernia and diffuse hepatic steatosis. (1) Acute GI bleeding: Code(s): K92.2 - Gastrointestinal hemorrhage, unspecified Status: Acute Assessment and Plan: - Hgb 10.1, previously 15.3 on 01/19/2024 - MCV and MCHC within normal limits - melanotic stool observed in ED with large blood clot - not on anticoagulation, has been taking NSAID (diclofenac) hold home Diclofenac and Glycopyrrolate - CT abd/pelvis: 1. Moderate-sized sliding hiatal hernia. 2. Diffuse hepatic steatosis. - GI consulted, awaiting recs - trend H&H - started on pantoprazole 40 IVP daily - last colonoscopy in 2012 at [facility], no abnormalities per patient - last EGD 3-4 years ago at [facility] - WBC 16.8, add C diff and stool culture - IV fluids: 2L bolus -> 150 mL/hr. d/c when appropriate. - monitor I&Os, hemodynamic stability, and telemetry 03/02: EGD showed a single ulcer 5 mL in the duodenal bulb, changed Protonix p.o. Acute on chronic blood-loss anemia Hemoglobin 7.0, hemoglobin 10.6 yesterday Blood pressure low Provide 1 pack RBC Hemoglobin stable, 7.4 today 03/02 Start ferrous sulfate 325 mg daily p.o. (2) HTN (hypertension): Qualifiers: Hypertension type: primary hypertension Qualified Code(s): I10 - Essential (primary) hypertension Code(s): I10 - Essential (primary) hypertension Status: Chronic Assessment and Plan: - home medications: hold lisinopril 40 mg daily upon arrival due to soft blood pressure Now blood pressure bumps up, reduce lisinopril to 20 mg daily p.o. discussed with patient before discharge Time Spent with Patient Time attestation: Total time spent providing and/or coordinating discharge services: Exam Narrative: GENERAL: Pleasant, in no acute distress. Well-nourished. - EYES: EOMI. Anicteric. - HENT: Moist mucous membranes. Pale - LUNGS: Clear to auscultation bilaterally, no wheezing, rhonchi, or rales. - CARDIOVASCULAR: Regular rate and rhythm. No murmur. No JVD. - ABDOMEN: Soft, non-tender and non-distended. No palpable masses. - EXTREMITIES: No edema. Peripheral pulses 2+. Non-tender. - NEUROLOGIC: No focal neurological deficits. CN II-XII grossly intact. - PSYCHIATRIC: Awake, Alert and oriented x 3. Appropriate mood and affect. - SKIN: No rashes or lesions. Warm. - LYMPH: No cervical lymphadenopathy. DS: Data Data Completed and Pending Pending studies at discharge: Pending at discharge 03/01/24 10:23 Surgical [PTH] Routine Surgical [PTH] Routine Labs on day of discharge: Labs from last 24 hours 03/02/24 02/29/24 06:52 10:39 WBC 6.2 RBC 2.38 L Hgb 7.4 L Hct 24.0 L MCV 100.8 H MCH 31.1 MCHC 30.8 L RDW 14.2 Plt Count 156 MPV 9.9 Sodium 134 L Potassium 4.0 Chloride 108 H Carbon Dioxide 29 Anion Gap -3 L BUN 14 D Creatinine 0.60 L Estim Creat Clear Calc 114 Estimated GFR > 60 Glucose 123 H Calcium 7.6 L Total Bilirubin 0.3 AST 19 ALT 15 Alkaline Phosphatase 47 Total Protein 5.0 L Albumin 2.8 L Blood Type O Negative Antibody Screen Negative Crossmatch See Detail Discharge Plan Discharge Attending physician on discharge: Griffin Vickers Consulting providers: Jose Allan; Chao Burkett; Patti Ruelas; Yanick Johnson; Jose Salvador V.; Gregory Patel Jr. Discharging Clinician: Griffin Vickers Anticipated Discharge Date/Time: 03/02/24 11:54 Patient Disposition: Home, Self-Care Activity: as tolerated Diet: as tolerated Patient Instructions: Gastrointestinal Bleeding (GEN), Diet for Stomach Ulcers and Gastritis (GEN) Patient Language: Uzbek Stand Alone Forms: General Discharge Information Follow-up/Referrals: PHYSICIAN NOT ON STAFF,NONSTAFF [Primary Care Provider] - (Patient needs to see primary care doctor in 1 week) Jose Allan MD [Physician] - (Patient needs see GI at scheduled appointment) Discharge Medications: New pantoprazole 40 mg Tablet,Delayed Release (Dr/Ec) 40 mg PO Q12HR Qty: 60 0RF ferrous sulfate 325 mg (65 mg iron) tablet 325 mg PO DAILY Qty: 30 0RF Continued diclofenac sodium 50 mg tablet,delayed release (DR/EC) 50 mg PO BID glycopyrrolate 2 mg tablet 2 mg PO DAILY PRN (Reason: Sweating) melatonin 10 mg Tablet 10 mg PO HS PRN (Reason: Insomnia) Discontinued lisinopril 40 mg Tablet 40 mg PO DAILY Date of admission: 02/29/24 16:56 Primary Care Provider: PHYSICIAN NOT ON STAFF,NONSTAFF Admitting Provider: Perico Jett Attending physician on admission: Griffin Vickers Condition: Guarded Prognosis
--- NOTE | 2024-03-02 13:51 | WPDANESPN ---
Anes - Prog Note Post-Op Date/Time: 03/02/24 13:51 Cardiovascular status: normal Respiratory status: normal Airway patency: baseline Mental status: baseline Post-Op hydration status: normal Vital Signs: Last Vital Signs Temp 99.5 F 03/02/24 06:00 Pulse 102 H 03/02/24 06:00 Resp 18 03/02/24 06:00 BP 131/81 03/02/24 06:00 Pulse Ox 100 03/02/24 06:00 O2 Del Method Room Air 03/01/24 20:00 Pain Score (VAS): 0/10 I/O: Intake & Output 03/01/24 03/02/24 03/02/24 23:59 07:59 15:59 Intake Total 1200 240 Balance 1200 240 Laboratory Tests 03/02/24 06:52 03/02/24 06:52 02/29/24 03/02/24 10:39 06:52 WBC 6.2 RBC 2.38 L Hgb 7.4 L Hct 24.0 L MCV 100.8 H MCH 31.1 MCHC 30.8 L RDW 14.2 Plt Count 156 MPV 9.9 Sodium 134 L Potassium 4.0 Chloride 108 H Carbon Dioxide 29 Anion Gap -3 L BUN 14 D Creatinine 0.60 L Estim Creat Clear Calc 114 Estimated GFR > 60 Glucose 123 H Calcium 7.6 L Total Bilirubin 0.3 AST 19 ALT 15 Alkaline Phosphatase 47 Total Protein 5.0 L Albumin 2.8 L Crossmatch See Detail Post-procedural complaints: none Patient Feedback: Patient satisfied with anesthetic care.
== END 2024-03-02 12:05 | disposition home or self-care (01) ==
LOC: ANHED 14:00 → ANH3MEDSUR 03-01 06:54
PROVIDERS: Internal Medicine Gastroenterology; Student in an Organized Health Care Education/Training Program; Admitting Provider Internal Medicine; Emergency Provider Emergency Medicine; Visit Provider Hospitalist
PROC: 0DJ08ZZ Inspection of Upper Intestinal Tract, Via Natural or Artificial Opening Endoscopic (ICD-10-PCS; CPT 43235; principal; 2024-03-01 15:00)
DX: K25.9 Gastric ulcer, unspecified as acute or chronic, without hemorrhage or perforation (principal); K29.70 Gastritis, unspecified, without bleeding; K26.9 Duodenal ulcer, unspecified as acute or chronic, without hemorrhage or perforation; D62 Acute posthemorrhagic anemia; K44.9 Diaphragmatic hernia without obstruction or gangrene; R55 Syncope and collapse; I10 Essential (primary) hypertension; Z79.1 Long term (current) use of non-steroidal anti-inflammatories (NSAID)
CPT/HCPCS: 43239; 36415; 36430; 74177; 80048; 80053; 85014; 85018; 85025; 85027; 85610; 85730; 86850; 86900; 86901; 86923; 88305; 88342; 93005; 96361; 96374; 96375; 96376; 99285; A9270; G0378; J2003; J2270; J2405; J2470; J2704; J7030; J7050; J7120; P9016; Q9967